=== PATIENT | female | born 1985 | race Caucasian/White ===

== ENCOUNTER 2017-02-11 19:39 | Emergency (ER) | payer MEDICAID ==
[2017-02-11] MEDS ORDERED: Sodium Chloride 0.9% 1,000 ML IV ONE (20:39)
[2017-02-11] MEDS ORDERED: Sodium Chloride 0.9% 1,000 ML ONE (21:05)
[2017-02-11 21:08] LABS: BASO % 0.2 % (0.0-2.0); EOS # 0.1 K/uL (0.0-0.7); EOS % 0.5 % (0.0-4.0); HEMOGLOBIN 12.8 g/dL (11.0-16.0); LYMPH # 4.5 K/uL (1.0-4.3); LYMPH % 43.2 % (20.0-40.0); MEAN CELL VOLUME 85.9 fL (81.0-99.0); MEAN CORPUSCULAR HEMOGLOBIN 27.6 pg (27.0-31.0); MEAN CORPUSCULAR HGB CONC 32.1 g/dL (33.0-37.0); MEAN PLATELET VOLUME 9.3 fL (7.2-11.7); MONO # 0.8 K/uL (0.0-0.8); MONO % 7.6 % (0.0-10.0); NEUT # 5.1 K/uL (1.8-7.0); NEUT % 48.5 % (50.0-75.0); RBC 4.65 Mil/uL (3.80-5.20); RED CELL DISTRIBUTION WIDTH 13.2 % (11.5-14.5); WHITE BLOOD COUNT 10.4 K/uL (4.8-10.8)
[2017-02-11 21:17] LABS: INR 1.1; PROTHROMBIN TIME 12.5 SECONDS (9.7-12.2)
[2017-02-11 21:27] LABS: ALBUMIN 4.2 g/dL (3.5-5.0)
[2017-02-11 21:30] LABS: ALB/GLOB RATIO 1.2 (1.0-2.1); ALT/SGPT 35 U/L (9-52); AST/SGOT 40 U/L (14-36); BLOOD UREA NITROGEN 13 mg/dL (7-17); GFR AFRICAN-AMERICAN > 60; GFR NON-AFRICAN AMERICAN > 60
[2017-02-11 21:31] LABS: CALCIUM 9.6 mg/dl (8.6-10.4); HDL CHOLESTEROL 49 mg/dL (30-70); MAGNESIUM 1.9 mg/dL (1.6-2.3)
[2017-02-11 21:42] LABS: LDL CHOLESTEROL 95 mg/dL (0-129)
--- NOTE | 2017-02-11 21:54 | CT ---
EXAM: CT Head Without Intravenous Contrast CLINICAL HISTORY: 31 years old, female; Signs and symptoms; Numbness / parasthesia; Left; Additional info: Left face numbness TECHNIQUE: Axial computed tomography images of the head/brain without intravenous contrast. This CT exam was performed using one or more of the following dose reduction techniques: automated exposure control, adjustment of the mA and/or kV according to patient size, and/or use of iterative reconstruction technique. EXAM DATE/TIME: 02/11/2017 8:38 PM COMPARISON: Prior images are not available for review. FINDINGS: Brain: Ventricles are normal in size and configuration. There is no midline shift. There are no intra-axial or extra-axial mass lesions or areas of hemorrhage. There are no abnormal fluid collections. Tan-white differentiation is maintained. Ventricles: See above. Bones: Cranial vault is intact. Soft tissues: unremarkable Sinuses: There is no acute sinusitis. Ears and mastoids: Middle ears and mastoids are unremarkable Orbits: Orbital contents are unremarkable. IMPRESSION: No acute intracranial abnormality
[2017-02-11 22:22] VITALS: BP 133/84; PULSE 96; RESP 16; TEMP 97.9; O2SAT 97
[2017-02-11] MEDS ORDERED: Naproxen 550 mg Tab PO STA (22:29)
[2017-02-11] MEDS ORDERED: Naproxen 550 mg Tab PO ONE (22:34)
--- NOTE | 2017-02-11 22:37 | C.PDOC ---
Time Seen by Provider: 02/11/17 20:16 Chief Complaint (Nursing): Headache History Per: Patient, Family, [employer] History/Exam Limitations: language barrier Onset/Duration Of Symptoms: Days (few days), Intermittent Episodes Current Symptoms Are (Timing): Still Present Severity: Moderate Associated Symptoms: Other (Left face numbness/tingling) Additional History Per: Prior Records Past Medical History Reviewed: Historical Data, Nursing Documentation, Vital Signs Vital Signs: Last Vital Signs Temp 97.9 F 02/11/17 22:22 Pulse 96 H 02/11/17 22:22 Resp 16 02/11/17 22:22 BP 133/84 02/11/17 22:22 Pulse Ox 97 02/11/17 22:22 - Medical History PMH: Asthma Other PMH: Vertigo Family History: States: Unknown Family Hx - Social History Hx Tobacco Use: No Hx Alcohol Use: No Hx Substance Use: No - Immunization History Hx Tetanus Toxoid Vaccination: No Hx Influenza Vaccination: No Hx Pneumococcal Vaccination: No Review Of Systems Except As Marked, All Systems Reviewed And Found Negative. Constitutional: Negative for: Fever, Weakness Eyes: Negative for: Pain, Vision Change Cardiovascular: Negative for: Chest Pain Respiratory: Negative for: Shortness of Breath Gastrointestinal: Negative for: Vomiting, Abdominal Pain Musculoskeletal: Negative for: Neck Pain Skin: Negative for: Rash Neurological: Positive for: Numbness (left face and LUE), Headache. Negative for: Weakness, Incoordination, Change in Speech, Confusion, Seizures, Altered Mental Status, Dizziness Physical Exam - Physical Exam Appears: Non-toxic, No Acute Distress Skin: Normal Color, Warm, Dry, No Rash Head: Atraumatic, Normacephalic Eye(s): bilateral: Normal Inspection, PERRL, EOMI Neck: Normal ROM, Supple Cardiovascular: Rhythm Regular Respiratory: Normal Breath Sounds, No Accessory Muscle Use Gastrointestinal/Abdominal: Soft, No Tenderness Extremity: Normal ROM Neurological/Psych: Oriented x3, Normal Speech, Normal Cognition, Normal Cranial Nerves, No Cerebellar Signs, Normal Motor, No Normal Sensation (Left side of face "feels funny" as compared to right.) ED Course And Treatment - Laboratory Results Result Diagrams: 02/11/17 21:00 02/11/17 21:00 Lab Interpretation: No Acute Changes ECG: Interpreted By Me, Viewed By Me ECG Rhythm: Sinus Rhythm, Nonspecific Changes Rate From EC O2 Sat by Pulse Oximetry: 97 Pulse Ox Interpretation: Normal - CT Scan/US CT head Other Rad Studies (CT/US): Read By Radiologist, Radiology Report Reviewed CT/US Interpretation: IMPRESSION: No acute intracranial abnormality Progress - Interventions Interventions:: Observation, Intravenous fluid - Medications Administered Oral: NSAID Intravenous: Antiemetic - Data Reviewed Data Reviewed: Lab, Diagnostic imaging, EKG, Old records - Patient Status Patient status: Mostly improved - Continuity of Care Discussed patient case with:: Patient, Family-HIPPA compliant, ED Nurse Discussed pt. case with literacy consultant/specialty: Neurology - Patient Plan Patient Plan: Discharge, F/U with PCP Disposition Discussed With Dr.: Anuel Alba Comment: He states pt should be discharged home on an NSAID with outpt f/up. Doctor Will See Patient In The: Office Counseled Patient/Family Regarding: Studies Performed, Diagnosis, Need For Followup, Rx Given - Disposition Referrals: Shaik Montgomery MD [Staff Provider] - Anuel Alba MD [Staff Provider] - Disposition: HOME/ ROUTINE Disposition Time: 22:39 Condition: IMPROVED Additional Instructions: Follow up with a Neurologist within 1 week for further evaluation and treatment. Return to the ER if you develop weakness, change in vision, dizziness , trouble talking, worsening of symptoms or if you have any other concerns. Prescriptions: Naproxen [Naprosyn] 1 tab PO BID PRN #20 tab PRN Reason: Pain Instructions: Paresthesia (ED), Migraine Headache (ED) Print Language: NICARAGUAN - Clinical Impression Clinical Impression: Headache, Left face and left arm tingling
--- NOTE | 2017-02-13 16:19 | CARD ---
APPROVED REPORT EKG Measurement Heart [id number] <Conclusion> Sinus tachycardia Otherwise normal ECG
== END 2017-02-11 22:50 | disposition home or self-care (01) ==
LOC: C.ER 19:39
DX: R51 Headache (principal); R20.2 Paresthesia of skin
CPT/HCPCS: 70450; 80053; 80061; 83036; 83735; 84484; 85025; 85610; 85730; 86850; 86900; 93005; 96374; 99285; J2765; J7040

== ENCOUNTER 2017-05-21 08:22 | Emergency (ER) | payer MEDICAID ==
[2017-05-21] MEDS ORDERED: Sodium Chloride 0.9% 1,000 ML IV ONE (09:02)
[2017-05-21 09:23] LABS: BASO # 0.1 K/uL (0.0-0.2); BASO % 1.4 % (0.0-2.0); EOS % 0.4 % (0.0-4.0); HEMATOCRIT 40.1 % (34.0-47.0); LYMPH # 2.9 K/uL (1.0-4.3); LYMPH % 32.9 % (20.0-40.0); MEAN CELL VOLUME 85.2 fL (81.0-99.0); MEAN CORPUSCULAR HEMOGLOBIN 28.4 pg (27.0-31.0); MEAN CORPUSCULAR HGB CONC 33.4 g/dL (33.0-37.0); MEAN PLATELET VOLUME 8.8 fL (7.2-11.7); MONO # 0.5 K/uL (0.0-0.8); MONO % 6.2 % (0.0-10.0); NRBC % 0.1 % (0.0-2.0); WHITE BLOOD COUNT 8.8 K/uL (4.8-10.8)
[2017-05-21 09:32] LABS: CHLORIDE 101 mmol/L (98-107); SODIUM 136 mmol/L (132-148)
[2017-05-21 09:33] LABS: RBC URINE 2 /hpf (0-3); URINE BACTERIA RARE (<OCC); URINE BILIRUBIN NEGATIVE (NEGATIVE); URINE BLOOD NEGATIVE (NEGATIVE); URINE COLOR Yellow (YELLOW); URINE GLUCOSE (UA) NORMAL (Normal); URINE KETONE TRACE mg/dL (NEGATIVE); URINE LEUKOCYTE ESTERASE TRACE Leu/uL (Negative); URINE PROTEIN NEGATIVE (NEGATIVE); URINE UROBILINOGEN NORMAL mg/dL (0.2-1.0); WBC URINE 2 /hpf (0-5)
[2017-05-21 09:34] LABS: GFR AFRICAN-AMERICAN > 60
[2017-05-21 09:35] LABS: ALB/GLOB RATIO 1.2 (1.0-2.1); ALKALINE PHOSPHATASE 80 U/L (38-126); ALT/SGPT 32 U/L (9-52); AST/SGOT 16 U/L (14-36); BILIRUBIN,TOTAL 0.7 mg/dL (0.2-1.3); BLOOD UREA NITROGEN 12 mg/dL (7-17); CALCIUM 9.2 mg/dl (8.6-10.4); CARBON DIOXIDE 23 mmol/L (22-30); GLUCOSE,RANDOM 92 mg/dL (65-105); TOTAL PROTEIN 8.1 g/dL (6.3-8.3)
--- NOTE | 2017-05-21 09:50 | US ---
HISTORY: RUQ COMPARISON: None. TECHNIQUE: Sonographic evaluation of the right upper quadrant of the abdomen. FINDINGS: LIVER: Measures 17.7 cm in length. Normal echogenicity of the liver parenchyma. No mass. No intrahepatic bile duct dilatation. GALLBLADDER: Unremarkable. No gallstones. COMMON BILE DUCT: Measures 3 mm. No stones. No dilatation. PANCREAS: Unremarkable as visualized. No mass. No ductal dilatation. RIGHT KIDNEY: Measures 11.3 cm in length. Normal echogenicity. No calculus, mass, or hydronephrosis. AORTA: No aneurysmal dilatation. IVC: Unremarkable. OTHER FINDINGS: None . IMPRESSION: Unremarkable abdominal ultrasound examination.
[2017-05-21] MEDS ORDERED: Sodium Chloride 0.9% 1,000 ML ONE (09:52)
--- NOTE | 2017-05-21 10:01 | C.PDOC ---
History Of Present Illness 31 y/o female presents to ED with complaints of RUQ abdominal pain for 4 days with associated nausea. Patient states pain radiates to back and denies vomiting , diarrhea, bowel/bladder incontinence, fever, chills or any other complaints at this time. Time Seen by Provider: 05/21/17 08:26 Chief Complaint (Nursing): Abdominal Pain History Per: Patient History/Exam Limitations: no limitations Onset/Duration Of Symptoms: Days Current Symptoms Are (Timing): Still Present Location Of Pain/Discomfort: RUQ Radiation Of Pain To:: Back Quality Of Discomfort: "Pain" Associated Symptoms: Nausea. denies: Fever, Chills, Vomiting Past Medical History Reviewed: Historical Data, Nursing Documentation, Vital Signs Vital Signs: Last Vital Signs Temp 98.3 F 05/21/17 10:55 Pulse 74 05/21/17 10:55 Resp 20 05/21/17 10:55 BP 119/79 05/21/17 10:55 Pulse Ox 98 05/21/17 10:55 - Medical History PMH: Asthma Surgical History: No Surg Hx Family History: States: No Known Family Hx - Social History Hx Tobacco Use: No Hx Alcohol Use: No Hx Substance Use: No - Immunization History Hx Tetanus Toxoid Vaccination: No Hx Influenza Vaccination: No Hx Pneumococcal Vaccination: No Review Of Systems Constitutional: Negative for: Fever, Chills Gastrointestinal: Positive for: Nausea, Abdominal Pain. Negative for: Vomiting , Diarrhea Genitourinary: Negative for: Dysuria, Hematuria Musculoskeletal: Negative for: Back Pain Skin: Negative for: Rash Neurological: Negative for: Weakness, Numbness Physical Exam - Physical Exam Appears: Non-toxic, No Acute Distress Skin: Normal Color, Warm, Dry, No Rash Head: Atraumatic, Normacephalic Oral Mucosa: Moist Neck: Normal ROM, Supple Chest: Symmetrical Cardiovascular: Rhythm Regular Respiratory: Normal Breath Sounds, No Rales, No Rhonchi, No Wheezing Gastrointestinal/Abdominal: Soft, Tenderness (RUQ), No Guarding, No Rebound Back: No CVA Tenderness Neurological/Psych: Oriented x3, Normal Motor, Normal Sensation Gait: Steady ED Course And Treatment - Laboratory Results Result Diagrams: 05/21/17 09:17 05/21/17 09:17 Lab Interpretation: Normal Urine POC: Negative O2 Sat by Pulse Oximetry: 99 (RA) Pulse Ox Interpretation: Normal - CT Scan/US No standard instances Other Rad Studies (CT/US): Interpreted By Me CT/US Interpretation: FINDINGS: LIVER: Measures 17.7 cm in length. Normal echogenicity of the liver parenchyma. No mass. No intrahepatic bile duct dilatation. GALLBLADDER: Unremarkable. No gallstones. COMMON BILE DUCT: Measures 3 mm. No stones. No dilatation. PANCREAS: Unremarkable as visualized. No mass. No ductal dilatation. RIGHT KIDNEY: Measures 11.3 cm in length. Normal echogenicity. No calculus, mass, or hydronephrosis. AORTA: No aneurysmal dilatation. IVC: Unremarkable. OTHER FINDINGS: None . IMPRESSION : Unremarkable abdominal ultrasound examination. Progress Note: Treated with IVF NSS and zofran. On re-evaluation abdomen soft, feeling better, in no distress Reassessment Condition: Improved Medical Decision Making Medical Decision Making: Plan: Abdomen Ultrasound, Zofran Disposition Counseled Patient/Family Regarding: Studies Performed, Diagnosis, Need For Followup, Rx Given - Disposition Referrals: [facility] [Outside] [facility] [Outside] Disposition: HOME/ ROUTINE Disposition Time: 10:40 Condition: STABLE Prescriptions: Ondansetron ODT [Zofran ODT] 1 odt PO BID PRN #6 odt PRN Reason: Nausea/Vomiting Instructions: Abdominal Pain (ED) Forms: Accompanied To ED By:, [employer] (Puerto Rican), Work Excuse Print Language: KOREAN - POA Present On Arrival: None - Clinical Impression Clinical Impression: Vomiting, Abdominal pain - PA / POLITICAL ANALYST / Resident Statement MD/DO has reviewed & agrees with the documentation as recorded. - Scribe Statement The provider has reviewed the documentation as recorded by the Tanna Fitzpatrick All medical record entries made by the Tanna were at my direction and personally dictated by me. I have reviewed the chart and agree that the record accurately reflects my personal performance of the history, physical exam, medical decision making, and the department course for this patient. I have also personally directed, reviewed, and agree with the discharge instructions and disposition.
[2017-05-21 11:07] VITALS: BP 119/79; PULSE 74; RESP 20; TEMP 98.3
[2017-05-21 18:24] VITALS: O2SAT 99
== END 2017-05-21 10:55 | disposition home or self-care (01) ==
LOC: C.ER 08:22
DX: R10.11 Right upper quadrant pain (principal); R11.10 Vomiting, unspecified
CPT/HCPCS: 76705; 80053; 81001; 83690; 84703; 85025; 96361; 96374; 99284; J2405; J7040

== ENCOUNTER 2017-08-25 08:27 | Emergency (ER) | payer MEDICAID ==
--- NOTE | 2017-08-25 09:01 | C.PDOC ---
History Of Present Illness 31 y/o female, with history of vertigo, presents to the ER complaining of sore throat, subjective fever, and lower back pain which has been present for the past few days.Patient denies having cough, ear pain, abdominal pain, dysuria and hematuria. Patient does not have any other medical complaints. Time Seen by Provider: 08/25/17 08:34 Chief Complaint (Nursing): ENT Problem History Per: Patient History/Exam Limitations: no limitations Onset/Duration Of Symptoms: Days Current Symptoms Are (Timing): Still Present Severity: Moderate Past Medical History Reviewed: Historical Data, Nursing Documentation, Vital Signs Vital Signs: Last Vital Signs Temp 98.4 F 08/25/17 10:59 Pulse 92 H 08/25/17 10:59 Resp 20 08/25/17 10:59 BP 112/75 08/25/17 10:59 Pulse Ox 98 08/25/17 12:27 - Medical History PMH: Asthma Denies: Cardia Arrhythmia Surgical History: No Surg Hx Family History: States: No Known Family Hx - Social History Hx Tobacco Use: No Hx Alcohol Use: No Hx Substance Use: No - Immunization History Hx Tetanus Toxoid Vaccination: No Hx Influenza Vaccination: No Hx Pneumococcal Vaccination: No Review Of Systems Except As Marked, All Systems Reviewed And Found Negative. Constitutional: Positive for: Fever. Negative for: Chills ENT: Positive for: Throat Pain. Negative for: Ear Pain Respiratory: Negative for: Cough Gastrointestinal: Negative for: Abdominal Pain Genitourinary: Negative for: Dysuria, Hematuria Musculoskeletal: Positive for: Back Pain Physical Exam - Physical Exam Appears: Non-toxic, No Acute Distress, Other (morbidly obese) Skin: Normal Color, Warm Head: Atraumatic, Normacephalic Eye(s): bilateral: Normal Inspection, PERRL Ear(s): Bilateral: Normal Nose: Normal Oral Mucosa: Moist Throat: No Erythema, Exudate Neck: Supple Chest: Symmetrical Cardiovascular: Rhythm Regular Respiratory: Normal Breath Sounds, No Accessory Muscle Use, No Rales, No Rhonchi , No Wheezing Gastrointestinal/Abdominal: Normal Exam, Soft, No Tenderness Back: Paraspinal Tenderness (left paralumbar tenderness ) Extremity: Normal ROM Neurological/Psych: Oriented x3, Normal Speech, Normal Cognition, Normal Motor, Normal Sensation ED Course And Treatment O2 Sat by Pulse Oximetry: 98 (RA) Pulse Ox Interpretation: Normal Medical Decision Making Medical Decision Making: Plan: -- Flu Swab --Rapid Strep --Urinalysis -- Tylenol 975 mg PO pt reassesd: speaking full sentence no uvula deviation, no hot potato voice, flu strep neg. ua neg for infection blood, stone uti less likely. advise outpt fu and return precautions Disposition - Disposition Referrals: [facility] [Outside] [facility] [Outside] Disposition: HOME/ ROUTINE Disposition Time: 12:00 Condition: STABLE Additional Instructions: please follow up with clinic. return to er with worsening symptoms or concerns. Instructions: Viral Syndrome (ED) Forms: [employer] (Puerto Rican) - Clinical Impression Clinical Impression: Viral syndrome - Scribe Statement The provider has reviewed the documentation as recorded by the Wadeibe Iam Krishnamurthy Provider Attestation: All medical record entries made by the Scribe were at my direction and personally dictated by me. I have reviewed the chart and agree that the record accurately reflects my personal performance of the history, physical exam, medical decision making, and the department course for this patient. I have also personally directed, reviewed, and agree with the discharge instructions and disposition.
[2017-08-25 09:09] LABS: SQUAMOUS EPITHIAL 4 /hpf (0-5); URINE BILIRUBIN NEGATIVE (NEGATIVE); URINE BLOOD NEGATIVE (NEGATIVE); URINE CLARITY Clear (Clear); URINE COLOR Yellow (YELLOW); URINE GLUCOSE (UA) NORMAL (Normal); URINE LEUKOCYTE ESTERASE NEG Leu/uL (Negative); URINE NITRATE NEGATIVE (NEGATIVE); URINE PROTEIN NEGATIVE (NEGATIVE)
[2017-08-25 09:12] LABS: INFLUENZA A B NEGATIVE FOR FLU A/B (NEGATIVE)
[2017-08-25 11:00] VITALS: BP 112/75; PULSE 92; RESP 20; TEMP 98.4
[2017-08-25 12:25] VITALS: O2SAT 98
== END 2017-08-25 11:00 | disposition home or self-care (01) ==
LOC: C.ER 08:27
DX: B34.9 Viral infection, unspecified (principal)

== ENCOUNTER 2017-10-29 06:02 | Emergency (ER) | payer MEDICAID ==
[2017-10-29 06:17] VITALS: RESP 16; TEMP 98
[2017-10-29 06:58] LABS: HEMOGLOBIN 12.1 g/dL (11.0-16.0); MEAN CELL VOLUME 84.3 fL (81.0-99.0); MEAN CORPUSCULAR HEMOGLOBIN 28.2 pg (27.0-31.0); MEAN CORPUSCULAR HGB CONC 33.4 g/dL (33.0-37.0); MEAN PLATELET VOLUME 8.8 fL (7.2-11.7); NEUT % 76.6 % (50.0-75.0); RBC 4.31 Mil/uL (3.80-5.20); RED CELL DISTRIBUTION WIDTH 13.7 % (11.5-14.5); WHITE BLOOD COUNT 13.4 K/uL (4.8-10.8)
[2017-10-29 06:59] LABS: BASO # 0.2 K/uL (0.0-0.2); BASO % 1.2 % (0.0-2.0); LYMPH # 2.4 K/uL (1.0-4.3); MONO # 0.6 K/uL (0.0-0.8); MONO % 4.2 % (0.0-10.0); NEUT # 10.2 K/uL (1.8-7.0)
--- NOTE | 2017-10-29 07:00 | C.PDOC ---
History Of Present Illness 31 y/o female with no significant PMHX presents to ED with c/o of Lt sided chest pain x 1 week with no associated palpitations, dizziness, SOB, nausea or vomiting. Pt was seen by PMD 2 days ago and d/c on diclofenac and cardiology referral but states minimal improvement. Pt denies recent travel, OCP or recent immobility Time Seen by Provider: 10/29/17 06:18 Chief Complaint (Nursing): Chest Pain History Per: Patient History/Exam Limitations: no limitations Current Symptoms Are (Timing): Still Present Alleviating Factors: None Recent travel outside of the [place]: No Past Medical History Vital Signs: Last Vital Signs Temp 98 F 10/29/17 06:13 Pulse 86 10/29/17 06:13 Resp 16 10/29/17 06:13 BP 138/73 10/29/17 06:13 Pulse Ox 100 10/29/17 06:13 - Medical History PMH: Asthma Denies: Cardia Arrhythmia Family History: States: No Known Family Hx - Social History Hx Tobacco Use: No Hx Alcohol Use: No Hx Substance Use: No - Immunization History Hx Tetanus Toxoid Vaccination: No Hx Influenza Vaccination: No Hx Pneumococcal Vaccination: No Review Of Systems Constitutional: Negative for: Fever Cardiovascular: Positive for: Chest Pain. Negative for: Palpitations, Light Headedness Respiratory: Positive for: Cough Gastrointestinal: Negative for: Nausea, Vomiting Neurological: Negative for: Weakness, Numbness Physical Exam - Physical Exam Appears: Well, Non-toxic, No Acute Distress Skin: Normal Color Eye(s): bilateral: Normal Inspection, PERRL Oral Mucosa: Moist Neck: Normal Chest: Symmetrical, No Tenderness Cardiovascular: Rhythm Regular Respiratory: Normal Breath Sounds, No Accessory Muscle Use, No Wheezing Gastrointestinal/Abdominal: Normal Exam, Soft, No Tenderness Back: Normal Inspection, No CVA Tenderness Neurological/Psych: Oriented x3 ED Course And Treatment ECG: Interpreted By Me, Viewed By Me (and dr zhou) ECG Rhythm: Sinus Rhythm (NSR at 80) ECG Interpretation: Normal O2 Sat by Pulse Oximetry: 100 Pulse Ox Interpretation: Normal Progress Note: Labs ordered , CXR Disposition - Disposition Disposition: HOME/ ROUTINE Disposition Time: 07:19 Condition: STABLE - Clinical Impression Clinical Impression: Chest pain Physician Patient Turnover Patient Signed Over To: Analy Patel Handoff Comments: pending labs, cxr and dispo
--- NOTE | 2017-10-29 07:06 | C.PDOC ---
History Of Present Illness Pt reports L sided neck pain which radiates to her L chest.Deies any accompanying sx Chief Complaint (Nursing): Chest Pain History/Exam Limitations: no limitations Onset/Duration Of Symptoms: Days Current Symptoms Are (Timing): Still Present Severity: None Quality: Aching Past Medical History Reviewed: Nursing Documentation Vital Signs: Last Vital Signs Temp 98 F 10/29/17 09:56 Pulse 77 10/29/17 09:56 Resp 16 10/29/17 09:56 BP 117/81 10/29/17 09:56 Pulse Ox 100 10/30/17 11:05 - Medical History PMH: Asthma Denies: Cardia Arrhythmia Surgical History: No Surg Hx Family History: States: No Known Family Hx - Social History Hx Tobacco Use: No Hx Alcohol Use: No Hx Substance Use: No - Immunization History Hx Tetanus Toxoid Vaccination: No Hx Influenza Vaccination: No Hx Pneumococcal Vaccination: No Review Of Systems Except As Marked, All Systems Reviewed And Found Negative. Eyes: Negative for: Pain, Vision Change ENT: Negative for: Ear Pain, Ear Discharge Cardiovascular: Positive for: Chest Pain, Palpitations. Negative for: Orthopnea , Paroxysmal Noc. Dyspnea, Edema, Light Headedness Genitourinary: Negative for: Dysuria, Frequency Musculoskeletal: Positive for: Neck Pain Skin: Negative for: Rash Neurological: Negative for: Weakness, Numbness Physical Exam - Physical Exam Appears: Well Skin: Normal Color Head: Atraumatic, Normacephalic, Tenderness Eye(s): bilateral: Normal Inspection Ear(s): Bilateral: Normal Nose: Normal Tongue: Normal Appearing Teeth: Normal Dentition Neck: Paracervical Tenderness (L sided) Lymphatic: Normal Exam Chest: Symmetrical, Tenderness Cardiovascular: Rhythm Regular Respiratory: Normal Breath Sounds Back: Normal Inspection Extremity: Normal ROM Neurological/Psych: Oriented x3, Normal Speech, Normal Cognition, Normal Cranial Nerves ED Course And Treatment - Laboratory Results Result Diagrams: 10/29/17 06:56 10/29/17 06:56 Lab Interpretation: Normal Urine POC: Negative ECG: Interpreted By Me ECG Interpretation: Normal, No Acute Changes, No Changes From Prior O2 Sat by Pulse Oximetry: 100 - Radiology CXR: Interpreted by Ak CXR Interpretation: Yes: No Acute Disease Disposition - Disposition Referrals: [facility] [Outside] [facility] [Outside] Disposition: HOME/ ROUTINE Disposition Time: 11:04 Condition: STABLE Additional Instructions: Follow up with your PMD for further evaluation Instructions: Chest Pain Forms: [facility] (Indonesian), Work Excuse Print Language: PERSIAN - Clinical Impression Clinical Impression: Chest pain, Chest wall pain
--- NOTE | 2017-10-29 07:45 | RAD ---
Chest x-ray two views History: Chest pain. Comparison: 11/11/2014 Findings: Mild venous congestion. Heart size within normal limits. Degenerative changes in the spine. Impression: Mild venous congestion.
[2017-10-29 08:35] LABS: ALB/GLOB RATIO 1.1 (1.0-2.1); ALBUMIN 3.8 g/dL (3.5-5.0); ALT/SGPT 17 U/L (9-52); AST/SGOT 26 U/L (14-36); BLOOD UREA NITROGEN 14 mg/dL (7-17); GFR AFRICAN-AMERICAN > 60; GFR NON-AFRICAN AMERICAN > 60
[2017-10-29 09:37] LABS: SQUAMOUS EPITHIAL 8 /hpf (0-5); URINE BILIRUBIN NEGATIVE (NEGATIVE); URINE BLOOD NEGATIVE (NEGATIVE); URINE CLARITY Hazy (Clear); URINE COLOR Yellow (YELLOW); URINE GLUCOSE (UA) NORMAL (Normal); URINE LEUKOCYTE ESTERASE NEG Leu/uL (Negative); URINE PROTEIN NEGATIVE (NEGATIVE); URINE UROBILINOGEN NORMAL mg/dL (0.2-1.0)
[2017-10-29 09:57] VITALS: BP 117/81; PULSE 77
[2017-10-30 12:49] VITALS: O2SAT 100
--- NOTE | 2017-10-30 14:50 | CARD ---
APPROVED REPORT EKG Measurement Heart [id number] <Conclusion> Normal sinus rhythm Normal ECG
== END 2017-10-29 09:57 | disposition home or self-care (01) ==
LOC: C.ER 06:02
DX: R07.9 Chest pain, unspecified (principal)

== ENCOUNTER 2018-02-26 18:28 | Emergency (ER) | payer MEDICAID ==
--- NOTE | 2018-02-26 19:03 | C.PDOC ---
Chief Complaint (Nursing): Chest Pain Past Medical History Vital Signs: Last Vital Signs Temp 98 F 02/26/18 18:34 Pulse 99 H 02/26/18 18:54 Resp 20 02/26/18 18:54 BP 127/77 02/26/18 18:54 Pulse Ox 97 02/26/18 18:54 - Medical History PMH: Asthma Denies: Cardia Arrhythmia - Social History Hx Tobacco Use: No Hx Alcohol Use: No Hx Substance Use: No - Immunization History Hx Tetanus Toxoid Vaccination: No Hx Influenza Vaccination: No Hx Pneumococcal Vaccination: No ED Course And Treatment ECG: Interpreted By Me, Viewed By Me ECG Rhythm: Sinus Rhythm ECG Interpretation: Normal, No Acute Changes Interpretation Of ECG: NSR, no acute change, normal tracings. Rate From EC O2 Sat by Pulse Oximetry: 97 Pulse Ox Interpretation: Normal Disposition - Disposition Forms: [employer] (Sinhala)
--- NOTE | 2018-02-26 19:04 | C.PDOC ---
History Of Present Illness 32 year old female presents to the ED with complaints of chest pain for the past few days. Associated with increased difficulty breathing. He denies any SOB , fever, or cough. Patient is also complaining of itchiness to left side of body for few days. Time Seen by Provider: 02/26/18 18:36 Chief Complaint (Nursing): Chest Pain History Per: Patient History/Exam Limitations: no limitations Onset/Duration Of Symptoms: Days Current Symptoms Are (Timing): Still Present Past Medical History Reviewed: Historical Data, Nursing Documentation, Vital Signs Vital Signs: Last Vital Signs Temp 98 F 02/26/18 18:34 Pulse 80 02/26/18 22:00 Resp 16 02/26/18 22:00 BP 110/78 02/26/18 22:00 Pulse Ox 98 02/26/18 22:00 - Medical History PMH: Asthma Denies: Cardia Arrhythmia Family History: States: No Known Family Hx - Social History Hx Tobacco Use: No Hx Alcohol Use: No Hx Substance Use: No - Immunization History Hx Tetanus Toxoid Vaccination: No Hx Influenza Vaccination: No Hx Pneumococcal Vaccination: No Review Of Systems Except As Marked, All Systems Reviewed And Found Negative. Constitutional: Negative for: Fever Cardiovascular: Positive for: Chest Pain Respiratory: Positive for: Other (difficulty breathing). Negative for: Cough, Shortness of Breath Gastrointestinal: Negative for: Nausea, Vomiting Musculoskeletal: Positive for: Other (Itchiness to left side of body) Neurological: Negative for: Weakness, Dizziness Physical Exam - Physical Exam Appears: Non-toxic, No Acute Distress Skin: Normal Color, Warm, Dry Head: Atraumatic, Normacephalic Eye(s): bilateral: Normal Inspection, PERRL, EOMI Oral Mucosa: Moist Neck: Normal ROM Chest: Symmetrical, No Tenderness Cardiovascular: Rhythm Regular, No Murmur Respiratory: Normal Breath Sounds, No Rales, No Rhonchi, No Wheezing Gastrointestinal/Abdominal: Soft, No Tenderness, No Distention Extremity: Bilateral: Atraumatic, Normal Color And Temperature, Normal ROM Pulses: Left Radial: Normal, Right Radial: Normal Neurological/Psych: Oriented x3, Normal Speech ED Course And Treatment - Laboratory Results Result Diagrams: 02/26/18 20:20 02/26/18 20:20 ECG: Interpreted By Me, Viewed By Me ECG Rhythm: Sinus Rhythm ECG Interpretation: Normal, No Acute Changes Interpretation Of ECG: NSR, no acute change, normal tracings Rate From EC O2 Sat by Pulse Oximetry: 97 (RA) Pulse Ox Interpretation: Normal Medical Decision Making Medical Decision Making: Impression: Chest Pain Plan: * EKG Disposition Counseled Patient/Family Regarding: Diagnosis - Disposition Referrals: [facility] [Outside] Disposition Time: :26 Condition: STABLE Prescriptions: Naproxen [Naprosyn] 1 tab PO BID PRN #25 tab PRN Reason: Pain Instructions: Costochondritis (DC) Forms: [facility] (Frisian), Gen Discharge Inst Turkish Print Language: ROMANIAN - POA Present On Arrival: None - Clinical Impression Clinical Impression: Chest wall pain - Scribe Statement The provider has reviewed the documentation as recorded by the Scribe (Dena Scott) Provider Attestation: All medical record entries made by the Scribe were at my direction and personally dictated by me. I have reviewed the chart and agree that the record accurately reflects my personal performance of the history, physical exam, medical decision making, and the department course for this patient. I have also personally directed, reviewed, and agree with the discharge instructions and disposition.
[2018-02-26 20:27] LABS: BASO % 0.5 % (0.0-2.0); EOS # 0.1 K/uL (0.0-0.7); EOS % 0.6 % (0.0-4.0); HEMOGLOBIN 12.4 g/dL (11.0-16.0); LYMPH # 4.5 K/uL (1.0-4.3); LYMPH % 42.1 % (20.0-40.0); MEAN CELL VOLUME 84.2 fL (81.0-99.0); MEAN CORPUSCULAR HEMOGLOBIN 27.6 pg (27.0-31.0); MEAN CORPUSCULAR HGB CONC 32.8 g/dL (33.0-37.0); MEAN PLATELET VOLUME 9.3 fL (7.2-11.7); MONO # 0.8 K/uL (0.0-0.8); MONO % 7.5 % (0.0-10.0); NEUT # 5.3 K/uL (1.8-7.0); NEUT % 49.3 % (50.0-75.0); NRBC % 0.1 % (0.0-2.0); RBC 4.5 Mil/uL (3.80-5.20); RED CELL DISTRIBUTION WIDTH 13.6 % (11.5-14.5); WHITE BLOOD COUNT 10.7 K/uL (4.8-10.8)
[2018-02-26 20:39] LABS: ALB/GLOB RATIO 1.3 (1.0-2.1); ALBUMIN 4.3 g/dL (3.5-5.0); ALT/SGPT 32 U/L (9-52); AST/SGOT 14 U/L (14-36); BLOOD UREA NITROGEN 10 mg/dL (7-17); CALCIUM 9.4 mg/dl (8.6-10.4); GFR AFRICAN-AMERICAN > 60; GFR NON-AFRICAN AMERICAN > 60
[2018-02-27] MEDS ORDERED: Naproxen 550 mg Tab PO STA (01:31)
[2018-02-27 01:33] VITALS: BP 105/68; PULSE 78; RESP 18; TEMP 97.9; O2SAT 98
[2018-02-27] MEDS ORDERED: Naproxen 550 mg Tab PO ONE (01:46)
--- NOTE | 2018-02-27 08:16 | RAD ---
HISTORY: COMPARISON: 10/29/2017 TECHNIQUE: Chest PA and lateral FINDINGS: LINES AND TUBES: None. LUNG AND PLEURA: The lungs are well inflated and clear. No pleural effusion or pneumothorax. HEART AND MEDIASTINUM: The heart is not enlarged. The hilar and mediastinal contours are within normal limits. SKELETAL STRUCTURES: The bony structures are within normal limits for the patient's age. VISUALIZED UPPER ABDOMEN: Normal. OTHER FINDINGS: None. IMPRESSION: No active pulmonary disease.
--- NOTE | 2018-02-27 09:38 | CT ---
Date of service: 02/26/2018 PROCEDURE: CT Chest without contrast HISTORY: chest discomfort/ coughing COMPARISON: None. TECHNIQUE: Contiguous axial images were obtained through the chest without intravenous contrast enhancement. Sagittal and coronal reconstructions were performed. Radiation dose (DLP): 777.19 mGy-cm. This CT exam was performed using one or more of the following dose reduction techniques: Automated exposure control, adjustment of the mA and/or kV according to patient size, and/or use of iterative reconstruction technique. FINDINGS: LUNGS: The lungs are clear. No pulmonary nodule, focal consolidation or mass. There are no endobronchial lesions. MEDIASTINUM: The aorta is not dilated. Normal sized heart. No pericardial effusion. Main pulmonary artery unremarkable. No lymphadenopathy. PLEURA: No pleural fluid. No pneumothorax. BONES: No fracture. No destructive lesion. UPPER ABDOMEN: Grossly unremarkable. OTHER FINDINGS: None. IMPRESSION: No acute findings. A preliminary report was provided by [employer] [facility].
--- NOTE | 2018-02-27 12:08 | CARD ---
APPROVED REPORT Date of service: 02/26/2018 EKG Measurement Heart [id number] <Conclusion> Normal sinus rhythm Normal ECG
== END 2018-02-27 01:51 | disposition home or self-care (01) ==
LOC: C.ER 18:28
DX: R07.89 Other chest pain (principal)

== ENCOUNTER 2018-12-15 08:38 | Emergency (ER) | payer MEDICAID ==
--- NOTE | 2018-12-15 09:33 | C.PDOC ---
History Of Present Illness 33 y/o female presents to the ER complaining of left sided chest pain which has been present for the past 1 week.Patient states that the pain radiates to the neck. Patient reports that she began feeling palpitations in the morning today so she decided to come to the ER.She states that she has history of HTN and she is taking Amlodipine.Denies having SOB, fever,chills, cough, nausea, vomiting, and leg swelling. Time Seen by Provider: 12/15/18 09:03 Chief Complaint (Nursing): Chest Pain History Per: Patient History/Exam Limitations: no limitations Onset/Duration Of Symptoms: Days Current Symptoms Are (Timing): Still Present Severity: Moderate Past Medical History Reviewed: Historical Data, Nursing Documentation, Vital Signs Vital Signs: Last Vital Signs Temp 98.1 F 12/15/18 09:01 Pulse 71 12/15/18 09:01 Resp 18 12/15/18 09:01 BP 121/84 12/15/18 09:01 Pulse Ox 100 12/15/18 09:01 Primary Care Provider: Shaik Montgomery - Medical History PMH: Asthma, HTN Denies: Cardia Arrhythmia Surgical History: Family History: States: No Known Family Hx - Social History Hx Tobacco Use: No Hx Alcohol Use: No Hx Substance Use: No - Immunization History Hx Tetanus Toxoid Vaccination: No Hx Influenza Vaccination: No Hx Pneumococcal Vaccination: No Review Of Systems Except As Marked, All Systems Reviewed And Found Negative. Constitutional: Negative for: Fever, Chills Cardiovascular: Positive for: Chest Pain, Palpitations Respiratory: Negative for: Shortness of Breath Gastrointestinal: Negative for: Nausea, Vomiting Physical Exam - Physical Exam Appears: Non-toxic, No Acute Distress Skin: Normal Color, Warm, Dry Head: Atraumatic, Normacephalic Eye(s): bilateral: Normal Inspection Nose: Normal Oral Mucosa: Moist Neck: Supple Chest: Symmetrical, Tenderness (tenderness to left chest wall) Cardiovascular: Rhythm Regular Respiratory: Normal Breath Sounds, No Rales, No Rhonchi, No Wheezing Gastrointestinal/Abdominal: Normal Exam, Soft, No Tenderness, No Guarding, No Rebound Neurological/Psych: Oriented x3, Normal Speech ED Course And Treatment - Laboratory Results Result Diagrams: 12/15/18 09:46 12/15/18 09:46 ECG: Interpreted By Me, Viewed By Me ECG Rhythm: Sinus Rhythm Interpretation Of ECG: NSR with incomplete RBBB Rate From EC O2 Sat by Pulse Oximetry: 100 (RA) Pulse Ox Interpretation: Normal - Other Rad CXR X-Ray: Viewed By Me, Read By Radiologist Interpretation: HISTORY: CP. COMPARISON: Chest x-ray performed 02/26/18. TECHNIQUE: Chest, one view. FINDINGS: Examination limited by habitus and hypoinflation. LUNGS: Mild venous congestion versus vascular crowding due to hypoinflation. No focal consolidation. Please note that chest x-ray has limited sensitivity for the detection of pulmonary masses. PLEURA: No significant pleural effusion identified. No definite pneumothorax . CARDIOVASCULAR: The cardiomediastinal silhouette appears within normal limits of size. No significant atherosclerotic calcification present. OSSEOUS STRUCTURES: No acute osseous abnormality identified. VISUALIZED UPPER ABDOMEN: Unremarkable. OTHER FINDINGS: None. IMPRESSION: Mild venous congestion versus vascular crowding due to hypoinflation. Progress Note: Labs,CXR, UA, and HCG-Qual. ordered. EKG, CXR, labs negative. Patient feels better, no SOB. Patient is stable to be d/c home. S/s most likely musculo-skeletal pain. Patient was instructed to return to Ed if feel worse. Disposition - Disposition Disposition: HOME/ ROUTINE Disposition Time: 13:23 Condition: STABLE Additional Instructions: Follow up with PMD within 1-2 days. Return to ED immediately if feel worse. Prescriptions: Lidocaine 5% [Lidoderm] 1 patch TP DAILY #10 patch Ibuprofen [Motrin Tab] 600 mg PO Q8 #30 tab Instructions: Costochondritis (DC) Forms: [employer] (Malay), Work Excuse Print Language: POLISH - Clinical Impression Clinical Impression: Chest wall pain - PA / ECOLOGICAL RISK ASSESSOR / Resident Statement MD/DO has reviewed & agrees with the documentation as recorded. - Scribe Statement The provider has reviewed the documentation as recorded by the Tanna Krishnamurthy Provider Attestation All medical record entries made by the Tanna were at my direction and personall y dictated by me. I have reviewed the chart and agree that the record accurately reflects my personal performance of the history, physical exam, medical decision making, and the department course for this patient. I have also personally directed, reviewed, and agree with the discharge instructions and disposition.
[2018-12-15 09:49] LABS: HCG,QUALITATIVE URINE NEGATIVE (NEGATIVE)
[2018-12-15 09:51] LABS: BASO % 0.4 % (0.0-2.0); EOS % 0.8 % (0.0-4.0); HEMOGLOBIN 12.9 g/dL (11.0-16.0); LYMPH # 2.9 K/uL (1.0-4.3); LYMPH % 49.7 % (20.0-40.0); MEAN CELL VOLUME 84.8 fL (81.0-99.0); MEAN CORPUSCULAR HEMOGLOBIN 28.2 pg (27.0-31.0); MEAN CORPUSCULAR HGB CONC 33.2 g/dL (33.0-37.0); MEAN PLATELET VOLUME 8.7 fL (7.2-11.7); MONO # 0.5 K/uL (0.0-0.8); NEUT # 2.4 K/uL (1.8-7.0); NEUT % 41.1 % (50.0-75.0); NRBC % 0.1 % (0.0-2.0); RBC 4.56 Mil/uL (3.80-5.20); RED CELL DISTRIBUTION WIDTH 13.5 % (11.5-14.5); WHITE BLOOD COUNT 5.8 K/uL (4.8-10.8)
[2018-12-15 09:52] LABS: SQUAMOUS EPITHIAL 2 /hpf (0-5); URINE BILIRUBIN NEGATIVE (NEGATIVE); URINE BLOOD NEGATIVE (NEGATIVE); URINE CLARITY Clear (Clear); URINE COLOR Yellow (YELLOW); URINE GLUCOSE (UA) NORMAL (Normal); URINE LEUKOCYTE ESTERASE NEG Leu/uL (Negative); URINE PROTEIN NEGATIVE (NEGATIVE)
[2018-12-15 09:59] LABS: INR 1.1; PARTIAL THROMBOPLASTIN TIME 35.3 SECONDS (21-34); PROTHROMBIN TIME 11.7 SECONDS (9.7-12.2)
[2018-12-15 10:06] LABS: ALB/GLOB RATIO 1.2 (1.0-2.1); ALBUMIN 4.1 g/dL (3.5-5.0); ALT/SGPT 22 U/L (9-52); AST/SGOT 23 U/L (14-36); BLOOD UREA NITROGEN 11 mg/dL (7-17); CALCIUM 9.4 mg/dl (8.6-10.4); GFR NON-AFRICAN AMERICAN > 60
[2018-12-15 10:08] LABS: D DIMER < 200 ng/mlDDU (0-243)
--- NOTE | 2018-12-15 10:09 | RAD ---
HISTORY: CP COMPARISON: Chest x-ray performed 02/26/18 TECHNIQUE: Chest, one view. FINDINGS: Examination limited by habitus and hypoinflation. LUNGS: Mild venous congestion versus vascular crowding due to hypoinflation. No focal consolidation. Please note that chest x-ray has limited sensitivity for the detection of pulmonary masses. PLEURA: No significant pleural effusion identified. No definite pneumothorax . CARDIOVASCULAR: The cardiomediastinal silhouette appears within normal limits of size. No significant atherosclerotic calcification present. OSSEOUS STRUCTURES: No acute osseous abnormality identified. VISUALIZED UPPER ABDOMEN: Unremarkable. OTHER FINDINGS: None. IMPRESSION: Mild venous congestion versus vascular crowding due to hypoinflation.
[2018-12-15 10:15] LABS: CK-MB 0.74 ng/mL (0.0-3.38)
[2018-12-15 13:01] VITALS: BP 130/85; PULSE 78; RESP 16; TEMP 97.6
[2018-12-15 13:25] VITALS: O2SAT 100
--- NOTE | 2018-12-16 11:59 | CARD ---
APPROVED REPORT Date of service: 12/15/2018 EKG Measurement Heart [id number] <Conclusion> Normal sinus rhythm Normal ECG
== END 2018-12-15 13:30 | disposition home or self-care (01) ==
LOC: C.ER 08:38
DX: R07.89 Other chest pain (principal)